=== PATIENT | male | born 1930 | race Caucasian/White ===

== ENCOUNTER 2016-12-25 17:15 | Observation (INO) ==
--- NOTE | 2016-12-25 18:03 | Emergency Department Note ---
Disposition Clinical Impression: Anginal equivalent Abdominal pain Qualifiers: Abdominal location: unspecified location Qualified Code(s): R10.9 - Unspecified abdominal pain Disposition: Admitted As Inpatient Condition: Fair Referrals: NONE,PCP [Non-Partnered Physician] - Forms: ED Satisfaction Letter Time of Disposition: 21:11 Abdominal Pain HPI - General Chief Complaint: ED Chest Pain Stated Complaint: Abnormal EKG Per UC Time Seen by Provider: 12/25/16 17:21 Source: patient, family Mode of arrival: wheelchair Limitations: no limitations Nursing Notes Reviewed: Yes Vital Signs Reviewed: Yes - History of Present Illness HPI Narrative: 86-year-old with a history of recurrent abdominal pain. Patient was seen at [facility] and had a CT scan nothing acute was found discharged home patient went back to urgent care today with abdominal pain points the mid abdomen that they did an EKG it showed some nonspecific changes and he was sent here for evaluation patient denies any chest pain. Pt Subjective Complaint: abdominal pain Onset (ago): day(s) Consistency: intermittent Location: periumbilical Pain Severity: moderate Pain Scale: 5 Quality: aching Radiation: none Migration to: no migration Improves with: nothing Worsens with: nothing - Related Data Home Medications Medication Instructions Recorded Confirmed Losartan [Cozaar] 50 mg PO DAILY 12/23/16 12/23/16 Loratadine [Claritin] 12/25/16 12/25/16 Previous Rx's Medication Instructions Recorded Ondansetron HCl [Zofran] 4 mg PO Q6HR PRN #8 tablet 12/23/16 Allergies Allergy/AdvReac Type Severity Reaction Status Date / Time Penicillins Allergy Rash Verified 12/25/16 16:09 Abdominal Pain PMH - Past Medical History Medical history: Reports: hypertension Male Surgical History: Reports: cancer surgery, herniorrhaphy Psychiatric history: Reports: no psych history - Social History Smoking status: Never smoker Alcohol use: Reports: none Drug use: Reports: none Physical Exam - General Limitations: no limitations General appearance: alert, in no apparent distress Course - Reevaluation(s) Reevaluation #1: 86-year-old male who was seen for abdominal pain and outside facility had a CT scan it was negative. Continues to have epigastric pain up around his upper abdomen and umbilicus. Workup here included a CT scan with contrast which was negative for acute findings although he does have diverticular disease no evidence of diverticulitis. His troponin came back 0.03 and some nonspecific changes on his EKG in light of those findings and T-wave inversion in V1 and biphasic in V2 and V3 were going to admit him as an anginal equivalent. Time: 21:11 - Consultations Consultation #1: Discussed with , it. Time: 21:14 Vital Signs Temperature 98.6 F 12/25/16 17:17 Pulse Rate 62 12/25/16 17:17 Respiratory Rate 18 12/25/16 17:17 Blood Pressure 159/81 12/25/16 17:17 O2 Sat by Pulse Oximetry 97 12/25/16 17:17 Temperature 98.6 F 12/25/16 17:17 Pulse Rate 62 12/25/16 17:17 Respiratory Rate 18 12/25/16 17:17 Blood Pressure 159/81 12/25/16 17:17 O2 Sat by Pulse Oximetry 97 12/25/16 17:17 Oxygen Delivery Oxygen Delivery Room Air Abdominal Pain - Lab Data Lab results reviewed: Yes I reviewed the patient's lab results. Result diagrams: 12/25/16 18:15 12/25/16 18:15 Lab Results 12/25/16 12/25/16 12/25/16 Range/Units 18:15 18:15 18:15 WBC 5.8 (4.3-11.1) K/mcL RBC 4.64 (4.19-5.50) M/mcL Hgb 13.4 (12.9-16.9) g/dL Hct 41.5 (37.5-50.1) % MCV 89.4 (83.0-100.0) fL MCH 28.9 (28.0-33.3) pg MCHC 32.3 (31.6-35.5) g/dL RDW 14.6 H (11.5-14.5) % Plt Count 254 (140-400) K/mcL MPV 8.9 L (9.4-12.4) fL Immature Gran % 0.2 (0-4) % Seg Neutrophils % 58.4 % Lymphocytes % 28.2 % Monocytes % 11.5 % Eosinophils % 1.2 % Basophils % 0.5 % Neutrophils # 3.4 (1.6-8.9) K/mcL Lymphocytes # 1.6 (0.6-4.6) K/mcL Monocytes # 0.7 (0.0-1.3) K/mcL Eosinophils # 0.1 (0.0-0.6) K/mcL Basophils # 0.0 (0.0-0.2) K/mcL PT 11.2 (9.4-12.1) Seconds INR 1.0 APTT 28.2 (26.0-36.0) Seconds Sodium (136-145) mEq/L Potassium (3.5-4.5) mEq/L Chloride (98-109) mEq/L Carbon Dioxide (19-29) mEq/L BUN (8-26) mg/dL Creatinine (0.72-1.25) mg/dL Est GFR ( Amer) (> 60) Est GFR (Non-Af Amer) (> 60) BUN/Creatinine Ratio (6-26) Glucose (70-99) mg/dL Calculated Osmolality (280-300) Calcium (8.6-10.8) mg/dL Total Bilirubin 0.4 (0.2-1.2) mg/dL Direct Bilirubin 0.2 (0.0-0.5) mg/dL Indirect Bilirubin 0.2 (0.0-1.2) mg/dL AST 18 (5-34) Units/L ALT 18 (0-55) Units/L Alkaline Phosphatase 101 (38-126) Units/L Troponin I (0-0.03) ng/mL Serum Total Protein 6.7 (6.0-8.3) g/dL Albumin 3.3 L (3.5-5.0) g/dL Globulin 3.4 (2.4-3.5) g/dL Albumin/Globulin Ratio 1.0 L (1.1-2.2) Amylase 78 (25-125) Units/L Lipase (8-78) Units/L Urine Color (Yellow) Urine Clarity (Clear) Urine pH (5.0-8.0) pH Units Ur Specific Cushing (1.010-1.025) Urine Protein (Neg-Trace) mg/dL Urine Glucose (UA) (Normal) mg/dL Urine Ketones (Negative) mg/dL Urine Blood (Negative) Urine Nitrite (Negative) Urine Bilirubin (Negative) Urine Urobilinogen (Normal) mg/dL Ur Leukocyte Esterase (Negative) Ur Culture Indicated? (NO) 12/25/16 12/25/16 12/25/16 Range/Units 18:15 18:15 20:03 WBC (4.3-11.1) K/mcL RBC (4.19-5.50) M/mcL Hgb (12.9-16.9) g/dL Hct (37.5-50.1) % MCV (83.0-100.0) fL MCH (28.0-33.3) pg MCHC (31.6-35.5) g/dL RDW (11.5-14.5) % Plt Count (140-400) K/mcL MPV (9.4-12.4) fL Immature Gran % (0-4) % Seg Neutrophils % % Lymphocytes % % Monocytes % % Eosinophils % % Basophils % % Neutrophils # (1.6-8.9) K/mcL Lymphocytes # (0.6-4.6) K/mcL Monocytes # (0.0-1.3) K/mcL Eosinophils # (0.0-0.6) K/mcL Basophils # (0.0-0.2) K/mcL PT (9.4-12.1) Seconds INR APTT (26.0-36.0) Seconds Sodium 136 (136-145) mEq/L Potassium 4.1 (3.5-4.5) mEq/L Chloride 102 (98-109) mEq/L Carbon Dioxide 27 (19-29) mEq/L BUN 17 (8-26) mg/dL Creatinine 0.99 (0.72-1.25) mg/dL Est GFR ( Amer) > 60 (> 60) Est GFR (Non-Af Amer) > 60 (> 60) BUN/Creatinine Ratio 17 (6-26) Glucose 73 (70-99) mg/dL Calculated Osmolality 282 (280-300) Calcium 9.2 (8.6-10.8) mg/dL Total Bilirubin (0.2-1.2) mg/dL Direct Bilirubin (0.0-0.5) mg/dL Indirect Bilirubin (0.0-1.2) mg/dL AST (5-34) Units/L ALT (0-55) Units/L Alkaline Phosphatase (38-126) Units/L Troponin I 0.03 (0-0.03) ng/mL Serum Total Protein (6.0-8.3) g/dL Albumin (3.5-5.0) g/dL Globulin (2.4-3.5) g/dL Albumin/Globulin Ratio (1.1-2.2) Amylase (25-125) Units/L Lipase 22 (8-78) Units/L Urine Color Yellow (Yellow) Urine Clarity Clear (Clear) Urine pH 6.0 (5.0-8.0) pH Units Ur Specific Cushing 1.013 (1.010-1.025) Urine Protein Negative (Neg-Trace) mg/dL Urine Glucose (UA) Normal (Normal) mg/dL Urine Ketones Negative (Negative) mg/dL Urine Blood Negative (Negative) Urine Nitrite Negative (Negative) Urine Bilirubin Negative (Negative) Urine Urobilinogen Normal (Normal) mg/dL Ur Leukocyte Esterase Negative (Negative) Ur Culture Indicated? NO (NO) - Radiology Data Radiology results reviewed: Yes I reviewed the patient's radiology results. Chest X-Ray 12/25/16 17:57 IMPRESSION: No acute findings in the chest. D/ / Mynor Gudino MD / Mynor Gudino MD Interpreting Provider: Mynor Gduino MD Abdomen/Pelvis CT 12/25/16 20:20 IMPRESSION: 1. No acute abnormality within the abdomen and pelvis. 2. Colonic diverticulosis without evidence of acute diverticulitis. 3. 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 4. Prostate is enlarged. D/ / Derrick Ortez MD / Derrick Ortez MD Interpreting Provider: Derrick Ortez MD
[2016-12-25 18:25] LABS: Basophils % 0.5 %; Eosinophils # 0.1 K/mcL (0.0-0.6); Eosinophils % 1.2 %; Hematocrit 41.5 % (37.5-50.1); Hemoglobin 13.4 g/dL (12.9-16.9); Immature Granulocytes % 0.2 % (0-4); Lymphocytes # 1.6 K/mcL (0.6-4.6); Lymphocytes % 28.2 %; Mean Corpuscular HGB Conc 32.3 g/dL (31.6-35.5); Mean Corpuscular Hemoglobin 28.9 pg (28.0-33.3); Mean Corpuscular Volume 89.4 fL (83.0-100.0); Mean Platelet Volume 8.9 fL (9.4-12.4); Monocytes # 0.7 K/mcL (0.0-1.3); Monocytes % 11.5 %; Neutrophils # 3.4 K/mcL (1.6-8.9); Platelet Count 254 K/mcL (140-400); Red Blood Count 4.64 M/mcL (4.19-5.50); Red Cell Distribution Width 14.6 % (11.5-14.5); Segmented Neutrophils % 58.4 %
[2016-12-25 18:30] LABS: Prothrombin Time 11.2 Seconds (9.4-12.1)
[2016-12-25 18:33] LABS: Activated Partial Thrombo Time 28.2 Seconds (26.0-36.0)
[2016-12-25 18:39] LABS: Albumin 3.3 g/dL (3.5-5.0); Bilirubin,Direct 0.2 mg/dL (0.0-0.5); Bilirubin,Indirect 0.2 mg/dL (0.0-1.2); Bilirubin,Total 0.4 mg/dL (0.2-1.2); Globulin 3.4 g/dL (2.4-3.5); Total Protein 6.7 g/dL (6.0-8.3)
[2016-12-25 18:40] LABS: BUN/Creatinine Ratio 17 (6-26); Blood Urea Nitrogen 17 mg/dL (8-26); Calcium 9.2 mg/dL (8.6-10.8); Carbon Dioxide 27 mEq/L (19-29); Chloride 102 mEq/L (98-109); Glucose 73 mg/dL (70-99); Lipase 22 Units/L (8-78); Osmolality,Calculated 282 (280-300); Potassium 4.1 mEq/L (3.5-4.5); Sodium 136 mEq/L (136-145); eGFR For African Americans > 60 (> 60); eGFR For Non-African Americans > 60 (> 60)
[2016-12-25 20:10] LABS: Bilirubin,Urine Negative (Negative); Blood,Urine Negative (Negative); Clarity,Urine Clear (Clear); Color,Urine Yellow (Yellow); Glucose,Urine (UA) Normal (Normal); Ketones,Urine Negative (Negative); Leukocyte Esterase,Urine Negative (Negative); Nitrite,Urine Negative (Negative); Protein,Urine Negative (Neg-Trace); Specific Gravity,Urine 1.013 (1.010-1.025); Urobilinogen,Urine Normal (Normal)
[2016-12-25] MEDS ORDERED: Ondansetron 4 MG/2 ML VIAL IVP PRN (21:58)
[2016-12-25] MEDS ORDERED: Acetaminophen 325 MG TABLET PO PRN (21:58)
[2016-12-25] MEDS ORDERED: *HR* HYDROcodone/Acet 5/325 mg TABLET PO PRN (21:58)
[2016-12-25] MEDS ORDERED: Naloxone 0.4 MG/ML INJ IVP PRN (21:58)
[2016-12-25] MEDS ORDERED: *HR* Morphine 2 MG/ML SYRINGE IVP PRN (21:58)
[2016-12-25] MEDS: Mag Hydrox/Al Hydrox/Simeth 30 ML UDC PO SCH (23:25)
--- NOTE | 2016-12-25 23:52 | Internal Med History&Physical ---
<Kalia Tafoya - Last Filed: 12/26/16 00:18> Date of Encounter: 12/26/16 Time of Encounter: 23:00 Assessment and Plan (1) Abdominal pain Current visit: Yes Status: Acute Patient presents with acute abdominal pain he describes as lower abdomen and pelvis and he rates as a 3-5/10 on pain scale most likely caused by mild gastritis. He reports having no appetite over the past several days and states he has had nothing since this morning SOUMYA. Patient denies diarrhea. Patient has history of abdominal hernia repair in 2001. 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 Patient reports vomiting once which was bilious in nature but has ongoing nausea related to his current abdominal pain. IVP Zofran Q6 PRN ordered. Maalox 15 mL PO Q6HR ordered. Monitor I&O and daily weight. Clear liquid diet ordered to be advanced as tolerated. Will monitor WBC in the a.m. to assess for possible infectious gastritis. Qualifiers: Abdominal location: lower abdomen, unspecified Qualified Code(s): R10.30 - Lower abdominal pain, unspecified (2) Nausea & vomiting Current visit: Yes Status: Acute Patient presents with acute nausea and vomiting which he reports as transient over the past few days. Patient reports vomiting once which was bilious in nature but has ongoing nausea related to his current abdominal pain. IVP Zofran Q6 PRN ordered. Maalox 15 mL PO Q6HR ordered. Monitor I&O and daily weight. Clear liquid diet ordered to be advanced as tolerated. Qualifiers: Vomiting type: cyclical vomiting Vomiting Intractability: non-intractable Qualified Code(s): G43.A0 - Cyclical vomiting, not intractable (3) Abnormal EKG Current visit: No Status: Acute Patient presents with abnormal ECG today that shows sinus rhythm with possible anterior myocardial infarction of indeterminate age. Patient's initial troponin on admission to ED was 0.03. Repeat ECG. Echocardiogram ordered. Will trend troponins x2. Patient to be placed on continuous cardiac telemetry. Patient to be monitored closely for signs of cardiac and/or respiratory distress. (4) Hypertension Current visit: Yes Status: Chronic Patient presents with history of chronic hypertension. Will monitor patient and VS and continue patient's Losartan. Qualifiers: Hypertension type: essential hypertension Qualified Code(s): I10 - Essential (primary) hypertension (5) DVT prophylaxis Current visit: Yes Status: Acute Patient to be placed on DVT prophylaxis due to current admission protocol and bed rest status. Heparin 5,000 units SQ Q8 ordered. Internal Medicine - H&P: HPI Chief complaint: Abdominal Pain Admitted From: Emergency Dept Plans for Post Hospital Care: Home History of present illness: Mr. Clark is a 86 year old male who presents from the ED with chief complaint of abdominal pain over the past several days that he rates as a 3-5 / 10 on the pain scale. He reports he has had no appetite dyspneic over the past several days and has nothing to eat since this morning. Patient reports he vomited bilious emesis Thursday and this was the only episode of vomiting. However patient reports ongoing nausea but denies diarrhea. Patient reports he normally has 2 BMs a day and has no problem urinating. Patient denies any unusual bleeding in stool or urine. Patient has history of abdominal hernia repair in 2001 located in the lower abdomen to the right of the umbilicus. Patient's current medical history includes hypertension and history of skin cancer. Patient reports he is a never smoker. On admission to the ED. Patient 's EKG today showed sinus rhythm with possible anterior myocardial infarction of indeterminate age. No previous EKG was available for comparison. Due to abnormal ECG, patient to receive ACS rule out as well as abdominal pain treatment. Information obtained from the patient, chart review, and previous medical reports. Mr. Clark is a moderate risk for further morbidity based on current symptoms of places observation status. Time spent with patient greater than 40 minutes. Past Med Surg Social Fam HX - Past Medical History Source: patient, old records reviewed Medical history: cancer (Skin), hypertension Psychiatric history: no psych history - Past Surgical History Surgical History: cancer surgery (Skin cancer with grafts), cataract, herniorrhaphy - Social History Smoking Status: Never smoker Smokeless Tobacco Status: No Alcohol use: none Drug use: none Current living situation: Home, With Family Activity Level: Independent ambulation Recent Out of Country Travel Within the Last 8 Weeks: No Exposure or Possible Exposure to Illness During Travel: No - Family History Father Race: Family Member Ethnicity: Non- Living Status: Age at : 88 Cause of : Abdominal aneurysm Hx Family Cardiac Disorders: Yes (Abdominal aneurysm) Mother Race: Family Member Ethnicity: Non- Living Status: Age at : 86 Cause of : Alzheimer's disease Hx Family Neurologic Disorders: Yes (Alzheimer's disease) Brother Race: Family Member Ethnicity: Non- Living Status: Age at : 85 Cause of : Melanoma Hx Family Cancer: Yes (Melanoma) Sister Race: Family Member Ethnicity: Non- Living Status: Age at : 88 Cause of : Old age Hx Family Medical Disorders: No Internal Medicine - H&P: Meds Losartan [Cozaar] 50 mg PO DAILY 12/23/16 [History] Ondansetron HCl [Zofran] 4 mg PO Q6HR PRN #8 tablet 12/23/16 [Rx] Ascorbate Calcium [Vitamin C] 500 mg PO DAILY 12/25/16 [History] Aspirin [Ecotrin] 325 mg PO DAILY 12/25/16 [History] Dextrin [Easy Fiber] 17 gm PO DAILY 12/25/16 [History] Loratadine [Claritin] 10 mg PO DAILY 12/25/16 [History] Polyethylene Glycol 3350 [MiraLAX] 17 gm PO DAILY 12/25/16 [History] 3 Allergy/AdvReac Type Severity Reaction Status Date / Time Penicillins Allergy Rash Verified 12/25/16 16:09 All Systems PM: A 10-system review of systems was performed and is negative for pertinent findings except as documented above in the HPI. - Constitutional Constitutional: no chills, no fever(s), no night sweats - EENT Eyes: no change in vision, no discharge, no pain, no photophobia Ears: no ear discharge, no ear pain, no tinnitus Nose, mouth and throat: no dysphagia, no nasal discharge, no neck pain, no sore throat - Breasts Breasts: as per HPI - Cardiovascular Cardiovascular ROS IM: no chest pain, no diaphoresis, no dyspnea, no lightheadedness, no palpitations, no syncope - Respiratory Respiratory: no cough, no dyspnea, no wheezing, no excessive phlegm production - Gastrointestinal Gastrointestinal: as per HPI, abdominal pain, nausea, vomiting - Genitourinary Genitourinary ROS male: as per HPI - Musculoskeletal Musculoskeletal ROS IM: no numbness, no tingling - Integumentary Integumentary IM: no rash, no unusual bruising - Neurological Neurological ROS: no confusion, no convulsions, no focal weakness, no numbness, no tingling, no tremor(s) - Psychiatric Psychiatric: as per HPI - Endocrine Endocrine IM: as per HPI - Hematologic/Lymphatic Hematologic/Lymphatic: no easy bruising - Allergic/Immunologic Allergic/Immunologic: as per HPI - Constitutional Vitals: Temp Pulse Resp BP Pulse Ox 97.8 F 68 17 168/88 96 12/25/16 22:12 12/25/16 22:12 12/25/16 22:12 12/25/16 22:12 12/25/16 22:12 General appearance: Present: cooperative, A&O X 3, no acute distress, answers questions appropriately - Head Head exam: Present: atraumatic, normocephalic - Eye Eye exam: Present: PERRL, conjuntiva pink, sclera anicteric Pupils: Present: PERRL - ENT ENT exam: Present: normal exam, normal external ear exam - Neck Neck exam general surgery: Present: normal inspection, supple, trachea midline. Absent: lymphadenopathy - Respiratory Respiratory exam: Present: CTAB. Absent: accessory muscle use, rales, rhonchi, wheezes - Cardiovascular Cardiovascular exam: Present: RRR, +S1, +S2. Absent: diastolic murmur, gallop, rubs, systolic murmur - GI/Abdominal GI/Abdominal exam: Present: normal bowel sounds, soft, tenderness - Rectal Rectal exam: Present: deferred - Additional comments: exam deferred. - Extremities Exam Extremities exam: Present: warm, radial pulses palpable and symmetrical. Absent : calf tenderness, cyanotic, pedal edema - Back Exam Back exam: Present: normal inspection - Neurological Exam Neurological exam: Present: CN II-XII intact, oriented X3, no focal deficits. Absent: pronater drift, facial droop, speech deficit - Psychiatric Psychiatric exam: Present: normal affect, normal mood - Skin Skin exam: Present: dry, intact Internal Med - H&P Results - Labs CBC & Chem 7: 12/25/16 18:15 12/25/16 18:15 - EKG Data EKG shows normal: sinus rhythm - EKG Data Prior EKG available for review: no Interpretation IM: suggestive of ischemia EKG comments: 12/25/16 23:58 EKG dated 12/25/16 shows sinus rhythm with possible anterior myocardial infarction of indeterminate age. Abnormal ECG. - Diagnostic Studies Chest x-ray Additional comments: Impressions Chest X-Ray 12/25/16 17:57 IMPRESSION: No acute findings in the chest. D/ / Mynor Gudino MD / Mynor Gudino MD Interpreting Provider: Mynor Gudino MD CT scan - abdomen Additional comments: Impressions Abdomen/Pelvis CT 12/25/16 20:20 IMPRESSION: 1. No acute abnormality within the abdomen and pelvis. 2. Colonic diverticulosis without evidence of acute diverticulitis. 3. 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 4. Prostate is enlarged. D/ / Derrick Ortez MD / Derrick Ortez MD Interpreting Provider: Derrick Ortez MD <Ana Tianmad W - Last Filed: 12/26/16 07:20> Date of Encounter: 12/26/16 Internal Medicine - H&P: HPI History of present illness: Mr. Clark is a 86 year old male All Systems PM: A 10-system review of systems was performed and is negative for pertinent findings except as documented above in the HPI. - Constitutional Vitals: Temp Pulse Resp BP Pulse Ox 97.5 F L 81 16 127/61 96 12/26/16 03:06 12/26/16 03:06 12/26/16 03:06 12/26/16 03:06 12/26/16 03:06 Internal Med - H&P Results - Labs CBC & Chem 7: 12/26/16 05:46 12/26/16 05:46 Labs: Short CBC 12/25/16 12/26/16 12/26/16 Range/Units 23:28 05:46 05:46 WBC 6.0 (4.3-11.1) K/mcL RBC 4.57 (4.19-5.50) M/mcL Hgb 13.2 (12.9-16.9) g/dL Hct 40.4 (37.5-50.1) % MCV 88.4 (83.0-100.0) fL MCH 28.9 (28.0-33.3) pg MCHC 32.7 (31.6-35.5) g/dL RDW 14.5 (11.5-14.5) % Plt Count 247 (140-400) K/mcL MPV 8.7 L (9.4-12.4) fL Immature Gran % 0.3 (0-4) % Seg Neutrophils % 59.3 % Lymphocytes % 28.1 % Monocytes % 11.2 % Eosinophils % 0.8 % Basophils % 0.3 % Neutrophils # 3.5 (1.6-8.9) K/mcL Lymphocytes # 1.7 (0.6-4.6) K/mcL Monocytes # 0.7 (0.0-1.3) K/mcL Eosinophils # 0.1 (0.0-0.6) K/mcL Basophils # 0.0 (0.0-0.2) K/mcL PT 11.3 (9.4-12.1) Seconds INR 1.1 APTT 28.1 (26.0-36.0) Seconds Sodium (136-145) mEq/L Potassium (3.5-4.5) mEq/L Chloride (98-109) mEq/L Carbon Dioxide (19-29) mEq/L BUN (8-26) mg/dL Creatinine (0.72-1.25) mg/dL Est GFR ( Amer) (> 60) Est GFR (Non-Af Amer) (> 60) BUN/Creatinine Ratio (6-26) Glucose (70-99) mg/dL Est Mean Plasma Glucose mg/dl Hemoglobin A1c ( - 5.6) % Calculated Osmolality (280-300) Calcium (8.6-10.8) mg/dL Magnesium (1.6-2.6) mg/dL Troponin I 0.03 (0-0.03) ng/mL Triglycerides (< 150) mg/dL Cholesterol (< 200) mg/dL LDL Cholesterol, Calc (0-99) mg/dL VLDL Cholesterol, Calc (< 31) mg/dL HDL Cholesterol (40-59) mg/dL Cholesterol/HDL Ratio (0-4.9) 12/26/16 12/26/16 12/26/16 Range/Units 05:46 05:46 05:46 WBC (4.3-11.1) K/mcL RBC (4.19-5.50) M/mcL Hgb (12.9-16.9) g/dL Hct (37.5-50.1) % MCV (83.0-100.0) fL MCH (28.0-33.3) pg MCHC (31.6-35.5) g/dL RDW (11.5-14.5) % Plt Count (140-400) K/mcL MPV (9.4-12.4) fL Immature Gran % (0-4) % Seg Neutrophils % % Lymphocytes % % Monocytes % % Eosinophils % % Basophils % % Neutrophils # (1.6-8.9) K/mcL Lymphocytes # (0.6-4.6) K/mcL Monocytes # (0.0-1.3) K/mcL Eosinophils # (0.0-0.6) K/mcL Basophils # (0.0-0.2) K/mcL PT (9.4-12.1) Seconds INR APTT (26.0-36.0) Seconds Sodium 137 (136-145) mEq/L Potassium 4.2 (3.5-4.5) mEq/L Chloride 103 (98-109) mEq/L Carbon Dioxide 27 (19-29) mEq/L BUN 16 (8-26) mg/dL Creatinine 1.03 (0.72-1.25) mg/dL Est GFR ( Amer) > 60 (> 60) Est GFR (Non-Af Amer) > 60 (> 60) BUN/Creatinine Ratio 16 (6-26) Glucose 80 (70-99) mg/dL Est Mean Plasma Glucose 108 mg/dl Hemoglobin A1c 5.4 ( - 5.6) % Calculated Osmolality 284 (280-300) Calcium 9.0 (8.6-10.8) mg/dL Magnesium 1.9 (1.6-2.6) mg/dL Troponin I 0.03 (0-0.03) ng/mL Triglycerides 57 (< 150) mg/dL Cholesterol 161 (< 200) mg/dL LDL Cholesterol, Calc 99 (0-99) mg/dL VLDL Cholesterol, Calc 11 (< 31) mg/dL HDL Cholesterol 51 (40-59) mg/dL Cholesterol/HDL Ratio 3.2 (0-4.9) BMP 12/26/16 05:46 Sodium 137 Potassium 4.2 Chloride 103 Carbon Dioxide 27 BUN 16 Creatinine 1.03 Glucose 80 Calcium 9.0 Cardiac Enzymes 12/25/16 12/26/16 Range/Units 23:28 05:46 Troponin I 0.03 0.03 (0-0.03) ng/mL - Attending Attestation Seen/examined/supervised MDM. 86M with nausea, vomiting, abdominal pain without any abnormal findings on abdominal exam. Also has biphasic T-waves in V2 and V3 without chest pain. Symptomatic management for dyspepsia. Serial abdominal exam. Serial troponin. TTE.
[2016-12-26] MEDS: Mag Hydrox/Al Hydrox/Simeth 30 ML UDC PO SCH ×3 (05:24→17:42)
[2016-12-26] MEDS: *HR* Heparin 5,000 UNIT/ML VIAL SQ SCH ×3 (05:24→21:35)
[2016-12-26 05:57] LABS: Basophils % 0.3 %; Eosinophils # 0.1 K/mcL (0.0-0.6); Eosinophils % 0.8 %; Hematocrit 40.4 % (37.5-50.1); Hemoglobin 13.2 g/dL (12.9-16.9); Immature Granulocytes % 0.3 % (0-4); Lymphocytes # 1.7 K/mcL (0.6-4.6); Lymphocytes % 28.1 %; Mean Corpuscular HGB Conc 32.7 g/dL (31.6-35.5); Mean Corpuscular Hemoglobin 28.9 pg (28.0-33.3); Mean Corpuscular Volume 88.4 fL (83.0-100.0); Mean Platelet Volume 8.7 fL (9.4-12.4); Monocytes # 0.7 K/mcL (0.0-1.3); Monocytes % 11.2 %; Neutrophils # 3.5 K/mcL (1.6-8.9); Platelet Count 247 K/mcL (140-400); Red Blood Count 4.57 M/mcL (4.19-5.50); Red Cell Distribution Width 14.5 % (11.5-14.5); Segmented Neutrophils % 59.3 %
[2016-12-26 05:59] LABS: INR 1.1; Prothrombin Time 11.3 Seconds (9.4-12.1)
[2016-12-26 06:02] LABS: Activated Partial Thrombo Time 28.1 Seconds (26.0-36.0)
[2016-12-26 06:10] LABS: Hemoglobin A1C 5.4 %
[2016-12-26 06:11] LABS: BUN/Creatinine Ratio 16 (6-26); Blood Urea Nitrogen 16 mg/dL (8-26); Carbon Dioxide 27 mEq/L (19-29); Chloride 103 mEq/L (98-109); Chol/HDL Ratio 3.2 (0-4.9); Cholesterol 161 mg/dL (< 200); Glucose 80 mg/dL (70-99); HDL Cholesterol 51 mg/dL (40-59); LDL Cholesterol,Calculated 99 mg/dL (0-99); Magnesium 1.9 mg/dL (1.6-2.6); Osmolality,Calculated 284 (280-300); Potassium 4.2 mEq/L (3.5-4.5); Sodium 137 mEq/L (136-145); Triglycerides 57 mg/dL (< 150); eGFR For African Americans > 60 (> 60); eGFR For Non-African Americans > 60 (> 60)
[2016-12-26] MEDS: Aspirin Enteric Coated 325 MG Tablet PO SCH (08:26)
[2016-12-26] MEDS: Loratadine 10 MG TABLET PO SCH (08:26)
[2016-12-26] MEDS ORDERED: Pantoprazole 40 MG VIAL IVP SCH (09:00)
--- NOTE | 2016-12-26 18:14 | Internal Med Progress Note ---
Date of Encounter: 12/26/16 Time of Encounter: 09:10 - Assessment and plan (1) Abdominal pain Current Visit: No Status: Resolved Assessment and plan: Patient presents with acute abdominal pain he describes as lower abdomen and pelvis and he rates as a 3-5/10 on pain scale most likely caused by mild gastritis. He reports having no appetite over the past several days and was able to tolerate clear liquid tray for breakfast. Patient denies diarrhea. Patient has history of abdominal hernia repair in 2001. 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 Patient reports vomiting once which was bilious in nature but denies since. Pt denies abd pain, states that it has resolved. IVP Zofran Q6 PRN ordered. Maalox 15 mL PO Q6HR ordered. Qualifiers: Abdominal location: generalized Qualified Code(s): R10.84 - Generalized abdominal pain (2) Abnormal EKG Current Visit: No Status: Acute Assessment and plan: The patient was admitted for abnormal EKG. 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 We attempted to obtain his old records and received only what appears to be a demographic sheet. The office is closed at this time. Patient denies chest pain, states he has never had chest pain. Troponins are negative. Chest x-ray is negative. EKG shows LVEF 55-60% with normal LV size and function, mild diastolic dysfunction and no evidence of valvular dysfunction. Continue to monitor telemetry overnight repeat EKG in the morning and compare. (3) Hypertension Current Visit: Yes Status: Chronic Assessment and plan: Well controlled. Continue home medications. Qualifiers: Hypertension type: essential hypertension Qualified Code(s): I10 - Essential (primary) hypertension (4) DVT prophylaxis Current Visit: Yes Status: Acute Assessment and plan: Heparin subcutaneous. (5) Nausea & vomiting Current Visit: Yes Status: Acute Assessment and plan: Resolved. Patient has been eating and drinking and tolerating meal trays. Qualifiers: Vomiting type: cyclical vomiting Vomiting Intractability: non-intractable Qualified Code(s): G43.A0 - Cyclical vomiting, not intractable - Time Spent With Patient less than 15 minutes - Subjective Interval history: Patient was seen at bedside at 9:10 AM. He denies any chest pain or abdominal pain. Patient follows up with cardiology in [place]. He reports that his primary care provider, Iliana Clarke has all of his cardiology records. We did request them and only received basically a demographic page. - Constitutional Vitals: Temp Pulse Resp BP Pulse Ox 98.0 F 59 16 143/92 97 12/26/16 15:31 12/26/16 15:31 12/26/16 15:31 12/26/16 15:31 12/26/16 15:31 General appearance: Present: cooperative, A&O X 3, pleasant, no acute distress, answers questions appropriately - Head Head exam: Present: atraumatic, normal inspection, normocephalic - Eye Eye exam: Present: normal appearance, conjuntiva pink, sclera anicteric - Neck Neck exam general surgery: Present: normal inspection, supple, trachea midline. Absent: lymphadenopathy, tenderness - Respiratory Respiratory exam: Present: CTAB. Absent: accessory muscle use, chest wall tenderness, rales, rhonchi, wheezes - Cardiovascular Cardiovascular exam: Present: RRR, +S1, +S2. Absent: diastolic murmur, gallop, rubs, systolic murmur - GI/Abdominal GI/Abdominal exam: Present: normal bowel sounds, soft. Absent: distended, hepatomegaly, tenderness - Extremities Exam Extremities exam: Present: warm, radial pulses palpable and symmetrical. Absent : calf tenderness, cyanotic, pedal edema - Neurological Exam Neurological exam: Present: alert, oriented X3, no focal deficits. Absent: pronater drift, facial droop, speech deficit - Skin Skin exam: Present: dry, intact, normal color, warm. Absent: rash Internal Medicine: Result - Labs CBC & Chem 7: 12/26/16 05:46 12/26/16 05:46 Labs: Short CBC 12/26/16 Range/Units 05:46 WBC 6.0 (4.3-11.1) K/mcL Hgb 13.2 (12.9-16.9) g/dL Hct 40.4 (37.5-50.1) % Plt Count 247 (140-400) K/mcL Neutrophils # 3.5 (1.6-8.9) K/mcL BMP 12/26/16 05:46 Sodium 137 Potassium 4.2 Chloride 103 Carbon Dioxide 27 BUN 16 Creatinine 1.03 Glucose 80 Calcium 9.0 Cardiac Enzymes 12/25/16 12/26/16 Range/Units 23:28 05:46 Troponin I 0.03 0.03 (0-0.03) ng/mL - ABG Interpretation ABG results: PT/INR, D-dimer PT 11.3 Seconds (9.4-12.1) 12/26/16 05:46 Consult Discharge Plan - Plan Referrals: Iliana Clarke, TIMBER MANAGEMENT SPECIALIST [Primary Care Provider] -
[2016-12-27] MEDS: Mag Hydrox/Al Hydrox/Simeth 30 ML UDC PO SCH ×2 (00:52→05:47)
[2016-12-27] MEDS: *HR* Heparin 5,000 UNIT/ML VIAL SQ SCH (05:46)
[2016-12-27 07:19] VITALS: BP 118/75
[2016-12-27] MEDS: Loratadine 10 MG TABLET PO SCH (07:48)
[2016-12-27] MEDS: Aspirin Enteric Coated 325 MG Tablet PO SCH (07:48)
--- NOTE | 2016-12-27 08:48 | Discharge Summary ---
Date of Encounter: 12/28/16 Time of Encounter: 08:00 - Discharge Diagnosis (1) Abdominal pain Priority: Primary Status: Resolved Comments: Pt denies abdominal pain ,n/v/d, constipation. Abd soft and non-tender, bs present. CT negative for acute abnormality, diverticulitis. Most likely gastritis that has resolved. Qualifiers: Abdominal location: generalized Qualified Code(s): R10.84 - Generalized abdominal pain (2) Abnormal EKG Priority: Secondary Status: Acute Comments: Echo with normal LV sixe and function, mild LVDD, no significant valvular dysfunction. Pt denies chest pain. Troponins negative, chest xray negative, initial EKG in the ED with TWI V1, V2, V3. Repeat EKG shows same. Pt states that he was seen in [place] for a sinus infection in an ER, an EKG was done that showed an abmorality. He states that he had a stress and echo at that time that were all negative. Pt is pain free, denies SOB, TELLEZ, chest pain, chest pressure. We attempted to get old records from his primary care office, but only a history page was sent. I spoke with Dr. Darnell prior to discharging pt, recommends outpatient follow up. (3) Hypertension Priority: Secondary Status: Chronic Comments: Well controlled. Continue home medications. Qualifiers: Hypertension type: essential hypertension Qualified Code(s): I10 - Essential (primary) hypertension (4) DVT prophylaxis Priority: Secondary Status: Acute Comments: Heparin SQ. Pt is ambulatory in the room. (5) Nausea & vomiting Priority: Secondary Status: Resolved Comments: Pt denies n/v. He is able to eat regular diet without difficulty. He denies abd pain, diarrhea, or constipation. Qualifiers: Vomiting type: cyclical vomiting Vomiting Intractability: non-intractable Qualified Code(s): G43.A0 - Cyclical vomiting, not intractable - Discharge Medications Home Medications: Losartan [Cozaar] 50 mg PO DAILY 12/23/16 [History] Ondansetron HCl [Zofran] 4 mg PO Q6HR PRN #8 tablet 12/23/16 [Rx] Ascorbate Calcium [Vitamin C] 500 mg PO DAILY 12/25/16 [History] Aspirin [Ecotrin] 325 mg PO DAILY 12/25/16 [History] Dextrin [Easy Fiber] 17 gm PO DAILY 12/25/16 [History] Loratadine [Claritin] 10 mg PO DAILY 12/25/16 [History] Polyethylene Glycol 3350 [MiraLAX] 17 gm PO DAILY 12/25/16 [History] Allergies/Adverse Reactions: 3 Allergy/AdvReac Type Severity Reaction Status Date / Time Penicillins Allergy Rash Verified 12/25/16 16:09 Procedures/tests Complete & Pending: Procedures Performed prior 72 hours Category Date Time Status EV echocardiogram Routine Y 12/25/16 22:04 Completed Date of admission: 12/25/16 21:31 Primary care physician: Iliana Clarke CNP Discharging clinician: Margot Alves Anticipated date of discharge: 12/27/16 - Patient Status Disposition: Home, Self-Care Condition: Good Functional capacity at discharge: independent ambulation Overall status at discharge: patient is back to baseline - Discharge Instructions Instructions: Acute Abdominal Pain (DC), Chronic Hypertension (DC) Follow Up With: Iliana Clarke CNP [Primary Care Provider] - Additional Instructions: Follow up with your primary care provider in the next 7-10 days for a hospital follow up visit. Follow up with cardiology clinic for evaluation of abnormal EKG. Return to the ER for any other problems or concerns, or if your symptoms return or worsen. If you begin having chest pain, return to the ER immediately. Resume your normal home medications. Return to your normal activities as tolerated. Follow-up appointments: If there is not an appointment listed below, please call your physician and schedule a follow-up appointment. If you have congestive heart failure and your symptoms return, make an appointment with your physician. Medication List: Carry an up to date list of medications you are taking at all time. We have given you an updated medication list including any new medications that you have been prescribed. Please provide that list to your primary provider Symptoms: If your condition changes or you experience any of the following symptoms, notify your physician immediately: Unusual or worsening pain, fever, persistent nausea and vomiting, bleeding, increase in swelling (especially in your legs), sudden weight gain, extreme dizziness, chest pain, increased drainage or redness from a wound or incision. Go to the emergency department if you experience a problem with breathing. Weights: If you have a history of swelling or shortness of breath, weigh yourself daily and notify your physician if you have a weight gain of two or more pounds in one day or 5 or more pounds in a week. If you experience any of the warning signs for stroke: Sudden numbness or weakness of the face, arm or leg; especially on one side of the body, sudden confusion, trouble speaking or understanding, sudden trouble seeing in one or both eyes, sudden trouble walking, dizziness, loss of balance or coordination, sudden sever headache with no cause; Call 911 or go to the emergency room. Stroke is a medical emergency. Some risk factors for stroke: Age, cigarette smoking, diabetes, excessive alcohol consumption, family history , high blood pressure, overweight, physical inactivity, prior stroke, heart attack, diagnosis of carotid artery stenosis or other artery disease. If you smoke, STOP: Smoking or tobacco use significantly increases your risk of heart and lung disease. Your chance of disease greatly increases if you continue to smoke. For more information, call the [place] tobacco quit line for smoking cessation QUIT-NOW ( ) - Diet and Activity Activity: increase activity as tolerated, resume usual activities as tolerated Diet: advance to your usual diet Hospital course: Mr. Clark is a 86 year old male who presented to the emergency department with complaint of abdominal pain over the last several days that he rated as 3-5 /10 on the pain scale. He said he had no appetite short of breath over the past several days and has had nothing to eat since morning of arrival. Patient states that he had bilious emesis and one episode of vomiting. He denies diarrhea. EKG on day of admission showed T-wave inversion in V1 and V2 V3. Patient denied any chest pain and was admitted to receive ACS rule out as well as evaluation of the abdominal pain. 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 He states that he had a complete workup including echocardiogram and stress test in [place] and that everything was negative. He presented all of his cardiology records to his primary care provider here in [place], we attempted to receive the records are received inadequate information to be able to compare EKGs. Echocardiogram here showed LVEF of 55-60% with normal LV size and function, mild diastolic dysfunction and no evidence of valvular dysfunction. As we attempted to obtain old records, patient was kept overnight. Patient denied any abdominal pain. Visit, as well. He initially had lower abdominal pain with nausea and anorexia. This is most likely caused by a mild viral gastritis. CT abdomen and pelvis with contrast showed no acute abnormality, colonic diverticulosis with no diverticulitis and one episode of vomiting prior to arrival. Abdomen was soft and nontender to palpation with bowel sounds present. I discussed patient's case on day of discharge with light rail operator rn interventional, he felt the patient could follow up in the office outpatient since he was not here for cardiac chest pain rule out ACS complaint and since he had no chest pain it was appropriate to follow-up in the office. He said that the inverted T waves were concerning, however not emergent. I explained this to the patient, he and his appeared to be very upset over the fact that we were not able to obtain his records or review his records from [place]. Apparently they were under the impression that all health systems, hospitals, doctor's offices, pharmacies, etc. are all linked. Despite the fact that the light rail operator said he was stable go home, patient were upset that nothing was being done. I suggested that he stay for cardiology consultation, they were agreeable to this. I entered the cardiology consultation and prior to being seen by Dr. Darnell, the patient left. I had put in a discharge order provider to putting in the cardiology consultation, apparently the nurse was unaware of this, and apparently the patient did not want to stay to see cardiology. Patient was stable and appropriate for discharge, his labs were within normal limits as were his vital signs. He was stable and ready to be discharged. Only this portion of the discharge summary is a late entry. All other parts were filled out prior to patient being discharged. I did not finish this part in anticipation of cardiology consult and recommendations. - Time Spent with Patient Total time spent providing and/or coordinating discharge services: Less than 30 minutes - Constitutional Vitals: Temp Pulse Resp BP Pulse Ox 97.7 F 59 16 118/75 97 12/27/16 07:19 12/27/16 07:19 12/27/16 07:19 12/27/16 07:19 12/27/16 07:19 General appearance: Present: cooperative, A&O X 3, pleasant, no acute distress, answers questions appropriately - Head Head exam: Present: atraumatic, normal inspection, normocephalic - Eye Eye exam: Present: conjuntiva pink, sclera anicteric - Neck Neck exam general surgery: Present: normal inspection, supple, trachea midline. Absent: lymphadenopathy, tenderness - Respiratory Respiratory exam: Present: CTAB. Absent: accessory muscle use, chest wall tenderness, rales, rhonchi, wheezes - Cardiovascular Cardiovascular exam: Present: RRR, +S1, +S2. Absent: diastolic murmur, gallop, rubs, systolic murmur - GI/Abdominal GI/Abdominal exam: Present: normal bowel sounds, soft. Absent: distended, hepatomegaly, tenderness - Extremities Exam Extremities exam: Present: normal capillary refill, warm, radial pulses palpable and symmetrical. Absent: calf tenderness, cyanotic, pedal edema - Neurological Exam Neurological exam: Present: alert, oriented X3, no focal deficits. Absent: facial droop, speech deficit - Skin Skin exam: Present: dry, intact, normal color, warm. Absent: rash
--- NOTE | 2016-12-27 13:21 | Cardiology Consult Note ---
Date of Encounter: 12/27/16 Time of Encounter: 13:21 Assessment and Plan Discussion w patient/family: The assessment and plan as outlined above was discussed with the patient and/or family members who expressed understanding and agreement. All questions were answered. Thank you for involving us in the care of your patient. Please call with any questions. History of Present Illness Consult date: 12/27/16 (Pt left prior to my assessment) History of present illness: Mr. Clark is a 86 year old male Past Med Surg Social Fam HX - Past Medical History Medical history: cancer (Skin), hypertension Psychiatric history: no psych history - Past Surgical History Surgical History: cancer surgery (Skin cancer with grafts), cataract, herniorrhaphy - Social History Smoking Status: Never smoker Smokeless Tobacco Status: No Alcohol use: none Drug use: none - Family History Father Race: Family Member Ethnicity: Non- Living Status: Age at : 88 Cause of : Abdominal aneurysm Hx Family Cardiac Disorders: Yes (Abdominal aneurysm) Mother Race: Family Member Ethnicity: Non- Living Status: Age at : 86 Cause of : Alzheimer's disease Hx Family Neurologic Disorders: Yes (Alzheimer's disease) Brother Race: Family Member Ethnicity: Non- Living Status: Age at : 85 Cause of : Melanoma Hx Family Cancer: Yes (Melanoma) Sister Race: Family Member Ethnicity: Non- Living Status: Age at : 88 Cause of : Old age Hx Family Medical Disorders: No Medications and Allergies Losartan [Cozaar] 50 mg PO DAILY 12/23/16 [History] Ondansetron HCl [Zofran] 4 mg PO Q6HR PRN #8 tablet 12/23/16 [Rx] Ascorbate Calcium [Vitamin C] 500 mg PO DAILY 12/25/16 [History] Aspirin [Ecotrin] 325 mg PO DAILY 12/25/16 [History] Dextrin [Easy Fiber] 17 gm PO DAILY 12/25/16 [History] Loratadine [Claritin] 10 mg PO DAILY 12/25/16 [History] Polyethylene Glycol 3350 [MiraLAX] 17 gm PO DAILY 12/25/16 [History] 3 Allergy/AdvReac Type Severity Reaction Status Date / Time Penicillins Allergy Rash Verified 12/25/16 16:09 All Systems Review: A 10-system review of systems was performed and is negative for pertinent findings except as documented above in the HPI. Results 12/26/16 05:46 12/26/16 05:46 Consult Discharge Plan - Plan Instructions: Acute Abdominal Pain (DC), Chronic Hypertension (DC) Additional Instructions: Follow up with your primary care provider in the next 7-10 days for a hospital follow up visit. Follow up with cardiology clinic for evaluation of abnormal EKG. Return to the ER for any other problems or concerns, or if your symptoms return or worsen. If you begin having chest pain, return to the ER immediately. Resume your normal home medications. Return to your normal activities as tolerated. Follow-up appointments: If there is not an appointment listed below, please call your physician and schedule a follow-up appointment. If you have congestive heart failure and your symptoms return, make an appointment with your physician. Medication List: Carry an up to date list of medications you are taking at all time. We have given you an updated medication list including any new medications that you have been prescribed. Please provide that list to your primary provider Symptoms: If your condition changes or you experience any of the following symptoms, notify your physician immediately: Unusual or worsening pain, fever, persistent nausea and vomiting, bleeding, increase in swelling (especially in your legs), sudden weight gain, extreme dizziness, chest pain, increased drainage or redness from a wound or incision. Go to the emergency department if you experience a problem with breathing. Weights: If you have a history of swelling or shortness of breath, weigh yourself daily and notify your physician if you have a weight gain of two or more pounds in one day or 5 or more pounds in a week. If you experience any of the warning signs for stroke: Sudden numbness or weakness of the face, arm or leg; especially on one side of the body, sudden confusion, trouble speaking or understanding, sudden trouble seeing in one or both eyes, sudden trouble walking, dizziness, loss of balance or coordination, sudden sever headache with no cause; Call 911 or go to the emergency room. Stroke is a medical emergency. Some risk factors for stroke: Age, cigarette smoking, diabetes, excessive alcohol consumption, family history , high blood pressure, overweight, physical inactivity, prior stroke, heart attack, diagnosis of carotid artery stenosis or other artery disease. If you smoke, STOP: Smoking or tobacco use significantly increases your risk of heart and lung disease. Your chance of disease greatly increases if you continue to smoke. For more information, call the [place] tobacco quit line for smoking cessation ( ) Referrals: Iliana Clarke, EXAMINER OF CURRENCY [Primary Care Provider] -
--- NOTE | 2016-12-30 07:53 | Electrocardiograph Report ---
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
--- NOTE | 2016-12-30 08:16 | Electrocardiograph Report ---
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
== END 2016-12-27 10:42 | disposition home or self-care (01) ==
LOC: EMEROO 17:15 → 3BNU 17:15
PROVIDERS: ADMIT Internal Medicine; ATTEND Registered Nurse

== ENCOUNTER 2019-02-01 06:55 | Observation (INO) ==
[2019-02-01 08:01] LABS: Basophils % 0.4 %; Eosinophils # 0.1 K/mcL (0.0-0.6); Eosinophils % 1.3 %; Hematocrit 39.3 % (37.5-50.1); Hemoglobin 13.3 g/dL (12.9-16.9); Immature Granulocytes % 0.1 % (0-4); Lymphocytes # 0.9 K/mcL (0.6-4.6); Lymphocytes % 12.6 %; Mean Corpuscular HGB Conc 33.8 g/dL (31.6-35.5); Mean Corpuscular Hemoglobin 30.6 pg (28.0-33.3); Mean Corpuscular Volume 90.3 fL (83.0-100.0); Mean Platelet Volume 8.6 fL (9.4-12.4); Monocytes # 0.8 K/mcL (0.0-1.3); Neutrophils # 5.6 K/mcL (1.6-8.9); Platelet Count 249 K/mcL (140-400); Red Blood Count 4.35 M/mcL (4.19-5.50); Red Cell Distribution Width 13.3 % (11.5-14.5); Segmented Neutrophils % 75.6 %; White Blood Count 7.5 K/mcL (4.3-11.1)
[2019-02-01 08:21] LABS: Prothrombin Time 10.9 Seconds (9.4-12.1)
[2019-02-01 08:23] LABS: Alanine Aminotransferase 14 Units/L (7-52); Albumin 3.9 g/dL (3.5-5.7); Albumin/Globulin Ratio 1.3 (1.1-2.2); Alkaline Phosphatase 92 Units/L (34-104); Aspartate Amino Transferase 21 Units/L (13-39); BUN/Creatinine Ratio 18 (6-26); Bilirubin,Total 0.6 mg/dL (0.3-1.0); Blood Urea Nitrogen 19 mg/dL (8-23); Calcium 9.6 mg/dL (8.6-10.3); Carbon Dioxide 29 mEq/L (23-29); Chloride 95 mEq/L (98-107); Glucose 99 mg/dL (70-105); Osmolality,Calculated 268 (280-300); Potassium 4.5 mEq/L (3.5-5.1); Sodium 128 mEq/L (136-145); Total Protein 6.9 g/dL (6.4-8.9); eGFR For African Americans > 60 (> 60); eGFR For Non-African Americans > 60 (> 60)
[2019-02-01 08:24] LABS: Troponin I < 0.03 ng/mL (< 0.04)
[2019-02-01] MEDS ORDERED: Aspirin 325 MG TABLET PO ONE (09:44)
[2019-02-01] MEDS ORDERED: Naloxone 0.4 MG/ML INJ IVP PRN (11:15)
[2019-02-02] MEDS ORDERED: Acetaminophen 325 MG TABLET PO ONE (03:01)
[2019-02-02 03:05] LABS: Basophils % 0.8 %; Eosinophils # 0.1 K/mcL (0.0-0.6); Eosinophils % 2.6 %; Hematocrit 37.8 % (37.5-50.1); Hemoglobin 12.8 g/dL (12.9-16.9); Immature Granulocytes % 0.2 % (0-4); Lymphocytes # 1.6 K/mcL (0.6-4.6); Lymphocytes % 29.9 %; Mean Corpuscular HGB Conc 33.9 g/dL (31.6-35.5); Mean Corpuscular Hemoglobin 30.3 pg (28.0-33.3); Mean Corpuscular Volume 89.6 fL (83.0-100.0); Mean Platelet Volume 8.9 fL (9.4-12.4); Monocytes # 0.7 K/mcL (0.0-1.3); Monocytes % 12.7 %; Neutrophils # 2.9 K/mcL (1.6-8.9); Platelet Count 231 K/mcL (140-400); Red Blood Count 4.22 M/mcL (4.19-5.50); Red Cell Distribution Width 13.2 % (11.5-14.5); Segmented Neutrophils % 53.8 %; White Blood Count 5.3 K/mcL (4.3-11.1)
[2019-02-02 03:24] LABS: BUN/Creatinine Ratio 18 (6-26); Blood Urea Nitrogen 19 mg/dL (8-23); Calcium 8.9 mg/dL (8.6-10.3); Carbon Dioxide 26 mEq/L (23-29); Chloride 97 mEq/L (98-107); Chol/HDL Ratio 2.3 (0-4.9); Cholesterol 120 mg/dL (< 200); Glucose 94 mg/dL (70-105); HDL Cholesterol 53 mg/dL (40-59); LDL Cholesterol,Calculated 61 mg/dL (0-99); Osmolality,Calculated 272 (280-300); Potassium 4.3 mEq/L (3.5-5.1); Sodium 130 mEq/L (136-145); Triglycerides 30 mg/dL (< 150); eGFR For African Americans > 60 (> 60); eGFR For Non-African Americans > 60 (> 60)
[2019-02-02 07:06] VITALS: BP 144/75
[2019-02-02] MEDS ORDERED: Aspirin Enteric Coated 325 MG Tablet PO SCH (09:00)
[2019-02-02] MEDS ORDERED: Aspirin 325 MG TABLET PO ONE (09:21)
== END 2019-02-02 11:30 | disposition home or self-care (01) ==
LOC: 3BNU 06:55 → EMEROOARM 06:55 → SUATTDRO 10:37 → 3BNU 11:24
PROVIDERS: ADMIT Internal Medicine; ATTEND Family Medicine